=== PATIENT | female | born 1945 | race Caucasian/White ===

== ENCOUNTER 2017-02-16 22:48 | Inpatient (IN) | payer OTHER ==
[~2017-02-16] VITALS: Ht 157.4 cm; Wt 39.2 kg
--- NOTE | ~2017-02-16 | WRIGHTHP ---
[place], [place] PATIENT HISTORY AND PHYSICAL EXAM NAME: JANE GARCIA UNIT #: [id number] ROOM: 312 DOCTOR: TAYLOR SLAUGHTER MD BIRTHDATE: [birth year] DOS: 02/17/2017 INITIAL PSYCHIATRIC EVALUATION CHIEF COMPLAINT: "I really didn't try to kill myself, my just and I needed something for anxiety." HISTORY OF PRESENT ILLNESS: This is a 72-year-old white female who resides in the independent living [facility]. Reportedly, she was found unresponsive in her apartment after a suspected overdose of Ruth[place] and did require Narcan in order to be revived. The patient states that her approximately 6 days ago and she was very anxious and that she went to a neighbor's house to get an Ativan. After taking it, she states that she does not remember anything other than waking up in the hospital. She also states that people have accused her of stealing medication, which she vehemently denies, stating that the medicines were given to her voluntarily. At the present time, she denies suicidal thoughts and denies that this was an overdose attempt. She, however, does endorse multiple neurovegetative symptoms and is very depressed and despondent about her loss. She does note that over the last year, she has had a significant weight loss; sleep has also been somewhat disturbed. She is admitted now to rule out organic factors, to fully assess lethality, to engage in individual and garcia milieu activity with the ultimate plan to return to the least restrictive environment when psychiatrically stable. PAST MEDICAL HISTORY: Remarkable for normocytic anemia, peripheral vascular disease, vitamin D deficiency, congestive heart failure, diabetes and hypertension. MENTAL STATUS: The patient is alert and oriented to person, place and time. Mood does appear to be depressed and she does seem somewhat despondent. Affect is flat, blunted with a constricted range. She endorses multiple neurovegetative symptoms, but does convincingly denies suicidal thoughts and is very much concerned about being able to leave the hospital to help plan her 's . There is no symptom suggestive of hypomania or wilma. There are no auditory or visual hallucinations. No delusions, no paranoia. For the most part memory seems to be intact. DIAGNOSIS: Major depression, recurrent, severe. PLAN: The patient has been started on Remeron 15 mg at bedtime to combat depression, aiding sleep and improving appetite. Screening examinations to date have shown her to have a markedly low H and H, but the patient has received blood transfusions over the last several months. We will engage her in individual and garcia milieu activity. We will reach out to family members to help determine whether or not the patient is acutely lethal. We will engage her in individual and garcia milieu activity with the ultimate plan then to discharge when psychiatrically stable. [place], [place] PATIENT HISTORY AND PHYSICAL EXAM NAME: JANE GARCIA UNIT #: [id number] ROOM: 312 DOCTOR: TAYLOR SLAUGHTER MD BIRTHDATE: [birth year] TAYLOR SLAUGHTER MD CM:HISPHYS:PATIENT HISTORY AND PHYSICAL EXAMINATION 4 100 TAYLOR SLAUGHTER MD 02/17/17 1001 interface
--- NOTE | ~2017-02-16 | DS ---
[place], [place] DISCHARGE SUMMARY NAME: JANE GARCIA UNIT #: [id number] ROOM: 312 DOCTOR: TAYLOR SLAUGHTER MD BIRTHDATE: [birth year] DOS: 02/18/2017 CHIEF COMPLAINT: "I really didn't try to kill myself, my just and I needed something for anxiety." HISTORY OF PRESENT ILLNESS: This is a 72-year-old white female who resides in the independent living [place], [place]. Reportedly, she was found unresponsive in her apartment after a suspected overdose of medication. The patient did require Narcan in order to be revived. The patient states that her approximately 6 days ago and she was very anxious and upset. She went to a neighbor's house to get something for the anxiety and was given Ativan. After taking the medication, she states she does not remember anything other than waking up in the hospital. The patient states that people have accused her of stealing medication, which she vehemently denies, stating that the medicines were given to her on a voluntary basis by the neighbor. On the day of admission, the patient consistently denied suicidal thoughts, but did endorse multiple neurovegetative symptoms, stating that she is very depressed and despondent about her recent loss. Prior to her 's passing, she did have a significant weight loss over the last year and her sleep was also very much disturbed. She was admitted now to rule out any organic factors to assess true lethality, to stabilize on medication, returning to the least restrictive environment when psychiatrically stable. PAST MEDICAL HISTORY: Remarkable for normocytic anemia, peripheral vascular disease, vitamin D deficiency, congestive heart failure, diabetes and hypertension. SUMMARY OF HOSPITAL COURSE: The patient was admitted to the unit where she vehemently denied suicidal thoughts. She did endorse depressive symptoms, but stated that even as early as the first day when given Remeron 15 mg at bedtime, it dramatically improved her sleep so that she was able to fall asleep, stay asleep and wake up refreshed. It also did significantly improve her appetite. On the day of admission, a family session was held with the Social Service Department of the [facility] along with multiple family members. They in turn voiced that they did not feel that their mother would ever be suicidal and that this was all a misunderstanding and that she has a tendency to be extremely sensitive to medication. The patient herself voiced remorse for taking medicine that was not prescribed to her and stated that it was all a misunderstanding and was never meant to be a suicide attempt, just she took medicine that was not her medicine and she had an adverse reaction to it. After being evaluated for approximately 24 hours and having 2 good night sleeps with the Remeron and having a significantly improve appetite, it was determined that the patient did not have any acute lethality. She did voice positive plans for the future and was anxious to return home. The patient did request that I follow her when she returns back to the [facility]. MENTAL STATUS AT DISCHARGE: The patient is alert and oriented with mild time gaps. Mood was significantly trending towards euthymia. Affect was appropriate. She convincingly denied suicidal thoughts, homicidal thoughts and any self-injurious thoughts. There were no symptoms suggestive of hypomania or [place], [place] DISCHARGE SUMMARY [facility]: [facility]IA [facility] [id number] UNIT #: [id number] ROOM: 312 DOCTOR: TAYLOR SLAUGHTER MD BIRTHDATE: [birth year] wilma. There were no auditory or visual hallucinations. No delusions, no paranoia. Short term, intermediate, and long-term memory for the most part were intact. FINAL DIAGNOSIS: Major depression, recurrent, severe. PLAN: All of her prescriptions have been E-scribed to the [facility] in [place]. I will follow her when she returns to the [facility]. TAYLOR SLAUGHTER MD CM:DISCHGARRETT [id number] TAYLOR SLAUGHTER MD 02/18/17 1021 interface
[2017-02-16] MEDS ORDERED: LOVENOX30 MG/0.3 SC (23:53)
[2017-02-16] MEDS ORDERED: PROVENTIL HFA6.7 GM PO (23:59)
[2017-02-17] MEDS ORDERED: CILOSTAZOL100 MG PO (00:02)
[2017-02-17] MEDS ORDERED: PLAVIX75 M1 PO (00:03)
[2017-02-17] MEDS ORDERED: FERROUS SULFAT325 MG PO (00:05)
[2017-02-17] MEDS ORDERED: BREO ELLIPTA 21 EACH INH (00:07)
[2017-02-17] MEDS ORDERED: LASIX40 MG PO (00:08)
[2017-02-17] MEDS ORDERED: GLUCOTROL5 MG PO (00:11)
[2017-02-17] MEDS ORDERED: PRINIVIL20 M1 PO (00:11)
[2017-02-17] MEDS ORDERED: LOPRESSOR50 M1 PO (00:12)
[2017-02-17] MEDS ORDERED: VITAMIN D31000 UNI1 PO (00:13)
[2017-02-17] MEDS ORDERED: PROTONIX40 MG PO (00:13)
[2017-02-17] MEDS ORDERED: HUMALOG100 UNIT/2 SQ ×2 (00:15→00:16)
[2017-02-17] MEDS ORDERED: GLUTOSE 1537.5 GM PO (00:17)
[2017-02-17] MEDS ORDERED: DUONEB 3 MG/3 ML3 M1 INH (00:18)
[2017-02-17] MEDS ORDERED: OXYGEN NAS (00:32)
[2017-02-17 01:08] VITALS: BP 100/48
[2017-02-17] MEDS ORDERED: NEURONTIN100 MG PO (01:20)
[2017-02-17] MEDS ORDERED: POTASSIUM CHLO10 ME4 PO (01:20)
[2017-02-17] MEDS ORDERED: METFORMIN HCL1000 MG PO (01:21)
[2017-02-17 01:24] VITALS: BP 100/48
[2017-02-17] MEDS ORDERED: AMITRIPTYLINE25 MG PO (02:36)
[2017-02-17] MEDS ORDERED: REMERON15 M2 PO (02:38)
[2017-02-17] MEDS ORDERED: OMEPRAZOLE D/R20 MG PO (02:43)
[2017-02-17 07:16] LABS: BASO % 0.3 % (0.0-1.0); EOS # 0.1 10*3/uL (0.0-0.4); EOS % 1.1 % (1.0-4.0); HEMATOCRIT 25.6 % (37.0-47.0); LYMPH # 0.9 10*3/uL (1.3-4.4); LYMPH % 14.1 % (27.0-41.0); MEAN CELL VOLUME 89.5 fl (81.0-99.0); MEAN CORPUSCULAR HGB CONC 31.3 g/dl (33.0-37.0); MEAN PLATELET VOLUME 9.5 fl (9.6-12.3); MONO # 0.7 10*3/uL (0.1-1.0); MONO % 11.1 % (3.0-9.0); NEUT # 4.5 10*3/uL (2.3-7.9); NEUT % 73.1 % (47.0-73.0); PLATELET COUNT AUTOMATED 297 10*3/uL (130-400); RED BLOOD COUNT 2.86 10*6/uL (4.10-5.10); RED CELL DISTRI WIDTH 14.6 % (0-14.5); WHITE BLOOD COUNT 6.2 10*3/uL (4.8-10.8)
[2017-02-17 08:04] LABS: ALBUMIN 2.6 gm/dl (3.1-4.5); BUN 24 mg/dl (7-24); CHLORIDE 98 mmol/L (98-107); CHOLESTEROL 166 mg/dL (<200); CREATININE 0.84 mg/dL (0.55-1.02); SGOT/AST 11 IU/L (3-35); SGPT/ALT 13 U/L (12-78); SODIUM 140 mmol/L (136-145); TRIGLYCERIDES 136 mg/dl (<150); VLDL CHOLESTEROL 27 mg/dL (6-40)
[2017-02-17 08:14] LABS: ALKALINE PHOSPHATASE 50 U/L (45-117); HDL CHOLESTEROL 70 mg/dl (40-60); LDL CHOLESTEROL 69 mg/dL (9-159); TOTAL PROTEIN 6.9 gm/dL (6.4-8.2)
[2017-02-17 08:17] LABS: VITAMIN D, 25-HYDROXY 38.2 ng/mL (30-100)
[2017-02-17 08:36] VITALS: BP 141/59
[2017-02-17 20:00] VITALS: BP 104/52
[2017-02-18 07:54] VITALS: BP 150/54
[2017-02-18 08:41] LABS: HEMATOCRIT 31.2 % (37.0-47.0); HEMOGLOBIN 9.5 g/dl (12.0-16.0)
[2017-02-18] MEDS ORDERED: MIRTAZAPINE15 M2 PO (09:34)
== END 2017-02-18 15:10 | disposition home or self-care (01) | DRG 885 ==
LOC: EDSEX → 3N 22:48
PROVIDERS: Psychiatry & Neurology Psychiatry; Student in an Organized Health Care Education/Training Program
DX: F33.2 Major depressive disorder, recurrent severe without psychotic features (principal); E11.51 Type 2 diabetes mellitus with diabetic peripheral angiopathy without gangrene; I50.9 Heart failure, unspecified; I11.0 Hypertensive heart disease with heart failure; E55.9 Vitamin D deficiency, unspecified; D64.9 Anemia, unspecified; J44.9 Chronic obstructive pulmonary disease, unspecified; R63.0 Anorexia; Z90.710 Acquired absence of both cervix and uterus; Z90.49 Acquired absence of other specified parts of digestive tract; Z82.49 Family history of ischemic heart disease and other diseases of the circulatory system; Z80.8 Family history of malignant neoplasm of other organs or systems; Z88.8 Allergy status to other drugs, medicaments and biological substances; Z91.09 Other allergy status, other than to drugs and biological substances; Z79.899 Other long term (current) drug therapy; Z87.891 Personal history of nicotine dependence; Z91.5 Personal history of self-harm; Z63.4 Disappearance and death of family member; Z99.81 Dependence on supplemental oxygen; Z79.84 Long term (current) use of oral hypoglycemic drugs; Z79.51 Long term (current) use of inhaled steroids